=== PATIENT | female | born 1960 | race Caucasian/White ===

== ENCOUNTER → 2017-10-06 | Day surgery (SDC) | payer BC ==
[~2017-10-06] MED LIST: BUPIVACAINE/EPINEPHRINE 0.25% PF 30 ML VIAL ONE; BUPIVACAINE/EPINEPHRINE 0.5% PF 30 ML VIAL ONE; IBUP-232 PO; MIDAZOLAM HCL 2 MG/2 ML VIAL ONE; ONDANSETRON HCL 4 MG/2 ML VIAL IV PUSH ONE; PROPOFOL 200 MG/20 ML AMP IV ONE
--- NOTE | 2017-10-06 15:15 | TN ---
cc: LATIA DIAZ M.D. DATE OF SURGERY 10/06/2017 PREOPERATIVE DIAGNOSIS 6 cm soft tissue mass, right upper back. POSTOPERATIVE DIAGNOSIS 6 cm soft tissue mass, right upper back, probable lipoma. PROCEDURE PERFORMED Excision 6 cm soft tissue mass, right upper back. SURGEON Latia Diaz. ANESTHESIA General LMA lateral. COMPLICATIONS None. INDICATION FOR PROCEDURE Ms. Kincaid is a pleasant 56-year-old female who noted an enlarging mass on her right upper back between her shoulder blade and her spine. It was enlarging and causing her discomfort when she laid up against it. She was very concerned about it. She was seen in the office and offered excision. The risks and benefits of excision was discussed with her and she was agreeable. DETAILS OF PROCEDURE The patient was identified, brought to the operating room and placed supine on the operating table. After adequate anesthesia was achieved with LMA, the patient was then turned to the left lateral decubitus position with appropriate padding for hips, knees, shoulders and ankles. The mass had been marked in the preoperative holding area by myself and the patient. A timeout was taken. 0.25% Marcaine was injected directly overlying the mass. A transverse incision was made. Dissection was carried down into the subcutaneous tissue identifying an encapsulated fatty mass. Using blunt finger dissection the mass was dissected from surrounding tissue without violating its capsule. The mass was then excised in toto and sent to pathology for analysis. The wound was copiously irrigated with normal saline solution. Deep tissue was closed with 3-0 Vicryl and skin was closed with 4-0 Vicryl. 5 cc of 0.25% Marcaine was then injected into the cavity. Sterile dressings were applied and the patient was returned to a supine position, awakened and brought to Recovery in stable condition. MD RUBY Jones/VINNY /2:51 PM /3:04 PM
== END | disposition home or self-care (01) ==
LOC: ESDC 11:31
PROVIDERS: ATTEND Surgery Trauma Surgery
DX: D17.1 Benign lipomatous neoplasm of skin and subcutaneous tissue of trunk (principal)
CPT/HCPCS: 00300; 21931; 88304; J2250; J2405; J3010; 88305